=== PATIENT | female | born 1955 | race Two or more races ===

== ENCOUNTER 2025-02-12 14:55 | Inpatient (IN) | payer OTHER ==
[~2025-02-12] VITALS: Ht 157.5 cm; Wt 46.3 kg
--- NOTE | 2025-02-12 15:57 | NUR ---
PTE REFIERE MALESTAR GENERALIZADO, VOMITOS Y NAUSEAS.
[2025-02-12] MEDS ORDERED: AMLODIPINE-OLM1 EAC3 PO (15:58)
[2025-02-12] MEDS ORDERED: HYDRALAZINE HCL10 MG PO (15:58)
[2025-02-12] MEDS ORDERED: CARVEDILOL ER40 MG (15:58)
[2025-02-12] MEDS ORDERED: FAMOTIDINE/PF 20 MG/2 ML VIAL IV STA (16:20)
[2025-02-12] MEDS ORDERED: 0.9 % SODIUM CHLORIDE 1,000 ML IV STA (16:20)
[2025-02-12] MEDS ORDERED: ONDANSETRON HCL 2 MG/ML VIAL IV STA (16:20)
[2025-02-12] MEDS ORDERED: ACETAMINOPHEN 500 MG GEL..CAP PO ONE ×2 (16:30→16:34)
[2025-02-12] MEDS ORDERED: ONDANSETRON HCL 2 MG/ML VIAL ONE (16:34)
[2025-02-12] MEDS ORDERED: FAMOTIDINE/PF 20 MG/2 ML VIAL ONE (16:34)
--- NOTE | 2025-02-12 17:08 | NUR ---
SE ORIENTA A PACIENTE SOBRE TX MEDICO. SE COLECTAN MUESTRAS DE LABORATORIO Y SE CANALIZA A PACIENTE BAJO MEDIDAS ASEPTICAS. SE ENTREGA ENVASE PARA U/A. SE ADMINISTRAN MEDICAMENTOS AJAY ORDEN MEDICA. SE NOTIFICA CT.
[2025-02-12 17:20] LABS: BASO % 0.3 % (0.1-1.2); EOS # 0.11 (0.04-0.54); EOS % 0.6 % (0.7-7.0); LYMPH # 0.94 (1.18-3.74); LYMPH % 4.8 % (19.3-53.1); MEAN PLATELET VOLUME 12.90 fl (9.4-12.4); MONO # 1.62 (0.24-0.82); MONO % 8.3 % (4.7-12.5); NEUT # 16.51 (1.56-6.13); NEUT % 84.9 % (34.0-71.1); RED CELL DISTRIBUTION WIDTH 15.2 % (11.6-14.4)
[2025-02-12 17:34] LABS: BUN CREA RATIO 22.0 (7.0-25.0); CREATININE SERUM 2.52 mg/dL (0.55-1.02); GFR 18.86; GLUCOSE FASTING 122.0 mg/dL (65-100); OSMOLALITY SERUM 285.0 MOSM/KG (275-295)
[2025-02-12 17:46] LABS: COVID-19 AG NEGATIVE (NEGATIVE)
[2025-02-12 21:02] LABS: URINE APPEARANCE Turbid; URINE BILIRRUBIN Negative (NEGATIVE); URINE BLOOD Negative; URINE COLOR Yellow; URINE GLUCOSE Negative (NEGATIVE); URINE KETONE Negative (NEGATIVE); URINE LEUKOCYTE Large; URINE NITRATE Negative; URINE UROBILINOGEN 1.0 E.U./dl
[2025-02-12 21:07] LABS: URINE CAST 2.19 uL (0.0-1.40); URINE EPITHELIAL CELLS 23.8 uL (0.0-38.8); URINE RBC 2.1 uL (0.0-20.8)
[2025-02-12 21:43] LABS: URINE BACTERIA > 9821.5 uL (0.0-1933); URINE PROTEIN 100 (NEGATIVE)
[2025-02-12 21:49] LABS: TYPE CELLS SQUAMOUS
[2025-02-12] MEDS ORDERED: CEFTRIAXONE SODIUM 2,000 MG in 0.9 % SODIUM CHLORIDE 100 ML IV SCH (21:52)
[2025-02-12] MEDS ORDERED: FAMOTIDINE/PF 20 MG in 0.9 % SODIUM CHLORIDE 8 ML IV PUSH SCH (21:53)
[2025-02-12] MEDS ORDERED: ENOXAPARIN SODIUM 30 MG/0.3 ML SYRINGE SUBCUTANEO SCH (21:55)
[2025-02-12] MEDS ORDERED: ACETAMINOPHEN 325 MG TABLET PO PRN (22:00)
[2025-02-12] MEDS ORDERED: 0.9 % SODIUM CHLORIDE 1,000 ML IV SCH (22:00)
[2025-02-12] MEDS ORDERED: hydrALAZINE HCL 20 MG VIAL IV PRN (22:00)
[2025-02-12] MEDS ORDERED: ONDANSETRON HCL 4 MG in 0.9 % SODIUM CHLORIDE 50 ML IV PRN (22:15)
[2025-02-13 00:33] VITALS: BP 144/78
[2025-02-13 02:39] VITALS: BP 115/70; O2SAT 96
[2025-02-13 06:13] LABS: BASO % 0.1 % (0.1-1.2); EOS # 0.02 (0.04-0.54); EOS % 0.1 % (0.7-7.0); LYMPH # 1.24 (1.18-3.74); LYMPH % 8.5 % (19.3-53.1); MEAN PLATELET VOLUME 13.20 fl (9.4-12.4); MONO # 1.51 (0.24-0.82); MONO % 10.4 % (4.7-12.5); NEUT # 11.67 (1.56-6.13); NEUT % 80.4 % (34.0-71.1); RED CELL DISTRIBUTION WIDTH 15.1 % (11.6-14.4)
[2025-02-13] MEDS ORDERED: levoFLOXacin IN DEXTROSE 5 % 5 MG/ML PIGGYBAG IV STA (10:06)
[2025-02-13 10:45] VITALS: BP 123/66; O2SAT 99
[2025-02-13] MEDS ORDERED: LACTOBACILLUS ACIDOPHILUS 1 CAP CAP PO SCH (17:00)
[2025-02-13 18:30] VITALS: BP 150/71; O2SAT 98
[2025-02-14 02:42] VITALS: BP 137/67; BP 173/90; O2SAT 98; O2SAT 99
[2025-02-14 06:13] LABS: BASO % 0.3 % (0.1-1.2); EOS # 0.06 (0.04-0.54); EOS % 0.6 % (0.7-7.0); LYMPH # 1.43 (1.18-3.74); LYMPH % 15.3 % (19.3-53.1); MEAN PLATELET VOLUME 12.20 fl (9.4-12.4); MONO # 1.31 (0.24-0.82); NEUT # 6.38 (1.56-6.13); NEUT % 68.5 % (34.0-71.1); RED CELL DISTRIBUTION WIDTH 15.4 % (11.6-14.4)
[2025-02-14 06:20] LABS: MONO % 14.0 % (4.7-12.5)
[2025-02-14 06:39] LABS: ALT/SGPT 27.0 U/L (12-78); AST/SGOT 42.0 U/L (15-37); BILIRUBIN TOTAL 0.35 mg/dL (0.3-1.2); BUN CREA RATIO 20.0 (7.0-25.0); CREATININE SERUM 1.86 mg/dL (0.55-1.02); GFR 26.78; GLOBULINA 3.7 G/DL (2.4-3.5); GLUCOSE FASTING 97.0 mg/dL (65-100); OSMOLALITY SERUM 292.0 MOSM/KG (275-295)
[2025-02-14] MEDS ORDERED: MEROPENEM 500 MG/VIAL VIAL IV SCH (09:00)
[2025-02-14 10:29] VITALS: BP 130/64; O2SAT 98
[2025-02-14 10:30] VITALS: BP 130/64; O2SAT 98
[2025-02-14 18:40] VITALS: BP 148/70
[2025-02-15 02:55] VITALS: BP 143/65; O2SAT 98
[2025-02-15 09:39] VITALS: BP 149/76; O2SAT 98
[2025-02-15 19:45] VITALS: BP 158/78
[2025-02-16 01:37] VITALS: BP 155/68; O2SAT 100
[2025-02-16 10:27] VITALS: BP 168/94; O2SAT 99
[2025-02-16] MEDS ORDERED: POLYETHYLENE GLYCOL 3350 17 GM BLIST.PACK PO SCH (17:00)
[2025-02-16] MEDS ORDERED: MEROPENEM 500 MG/VIAL VIAL IV SCH (17:00)
[2025-02-16 19:25] VITALS: BP 154/79
[2025-02-17 01:29] VITALS: BP 148/71; O2SAT 100
[2025-02-17 10:06] VITALS: BP 140/74; O2SAT 98
[2025-02-17 13:07] LABS: BUN CREA RATIO 17.0 (7.0-25.0); CREATININE SERUM 1.29 mg/dL (0.55-1.02); GFR 40.86; GLUCOSE FASTING 128.0 mg/dL (65-100); OSMOLALITY SERUM 294.0 MOSM/KG (275-295)
[2025-02-17 18:14] VITALS: BP 119/66; O2SAT 98
[2025-02-18 03:31] VITALS: BP 124/63; O2SAT 96
[2025-02-18 08:50] VITALS: BP 118/83; O2SAT 95
[2025-02-18] MEDS ORDERED: CEFTRIAXONE SODIUM 2,000 MG VIAL IV SCH (09:00)
[2025-02-18] MEDS ORDERED: POTASSIUM CHLORIDE 10 MEQ CAPSULE PO SCH (13:00)
[2025-02-18 17:17] VITALS: BP 128/75; O2SAT 98
[2025-02-19 02:51] VITALS: BP 117/64; O2SAT 98
[2025-02-19 09:09] VITALS: BP 128/72; O2SAT 96
[2025-02-19 11:19] LABS: BUN CREA RATIO 15.0 (7.0-25.0); CREATININE SERUM 1.25 mg/dL (0.55-1.02); GFR 42.37; GLUCOSE FASTING 117.0 mg/dL (65-100); OSMOLALITY SERUM 288.0 MOSM/KG (275-295)
== END 2025-02-19 13:38 | disposition home or self-care (01) | DRG 689 ==
LOC: ER 14:55 → MEDJ 22:11
PROVIDERS: General Practice; ADMIT Internal Medicine; ATTEND Internal Medicine
PROC: BW21ZZZ Computerized Tomography (CT Scan) of Abdomen and Pelvis (ICD-10-PCS; principal; 2025-02-12)
PROC: B24BYZZ Ultrasonography of Heart with Aorta using Other Contrast (ICD-10-PCS; 2025-02-13)
DX: N39.0 Urinary tract infection, site not specified (principal); A41.9 Sepsis, unspecified organism; I63.9 Cerebral infarction, unspecified; N17.9 Acute kidney failure, unspecified; D72.829 Elevated white blood cell count, unspecified; N12 Tubulo-interstitial nephritis, not specified as acute or chronic; K59.00 Constipation, unspecified